=== PATIENT | male | born 1975 | race Caucasian/White ===

== ENCOUNTER 2018-02-10 18:49 | Emergency (ER) | payer SELFPAY ==
[2018-02-10 18:53] VITALS: BP 153/85
--- NOTE | 2018-02-10 19:09 | ER Report ---
History and Physical Time Seen By MD: 19:02 Hx. of Stated Complaint: PINCHED NERVE IN RT SHOULDER SINCE LAST . HAS BEEN TO TWO URGENT CARES SINCE SAT. HPI/ROS CHIEF COMPLAINT: shoulder with pinched nerve HISTORY OF PRESENT ILLNESS: This is a 42 year old male. 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 He has had a pain in his right neck/shoulder area. This has been present for about a week now. Has been to two urgent cares for the same problem. The first one gave him Naproxen and Robaxin which did not help. Next visit saw the doctor who gave Gabapentin without relief. Sharp pain at the area of the levator scapulae. Improves with holding arm above his head. Has some tingling in the arm. No hand weakness, but feels weak in the shoulder. Becoming very problematic for his job driving a truck. He is currently pulling a load to [place]. No fevers or chills. No chest pain. No shortness of breath. Allergies: Coded Allergies: No Known Drug Allergies (Unverified , 02/10/18) Home Meds Active Scripts Hydrocodone Bit/Acetaminophen (HYDROCODON-ACETAMINOPHEN 5-325) 1 Each Tablet, 1 EACH PO Q4H PRN for PAIN, #10 TAB 0 Refills Prov:FLAVIO THOMAS MD 02/10/18 Prednisone (PREDNISONE) 20 Mg Tablet, 60 MG PO QDAY, #12 TAB 0 Refills Prov:FLAVIO THOMAS MD 02/10/18 Reviewed Nurses Notes: Yes Hx Substance Use Disorder: No Hx Alcohol Use: No Constitutional Vital Sign - Last 24 Hours 02/10/18 18:53 Temp 97.9 Pulse 93 Resp 16 B/P (MAP) 153/85 Pulse Ox 96 O2 Delivery Room Air Physical Exam General Appearance: Alert, no acute distress. Eyes: Pupils equal and round, no injection. ENT: Normal oral mucosa. Moist mucous membranes. Neck: Neck is supple and non tender anterior. Musculoskeletal: Has pain over the levator scapulae and paraspinous neck muscles. No pain in the trapezius. No pain over spinous processes. No pain over scapula, clavicle or humerus. Do not feel any masses, but has some muscle knots in levator scapulae Respiratory: Chest is non tender, breathing easily. Cardiac: regular rate and rhythm. Normal cap refill in arm. Neuro: Has some paresthesias in arm, but no focal numbness. Normal strength. Skin: No rashes or lesions. DIFFERENTIAL DIAGNOSIS: After history and physical exam differential diagnosis was considered for neck and shoulder pain on the right. Medical Decision Making Data Points Result Diagram: 02/10/18191602/10/181916 Laboratory Hematology Test 02/10/18 19:17 Red Blood Count 5.33 M/uL (4.00-5.60) Mean Corpuscular Volume 88.6 fL (80.0-96.0) Mean Corpuscular Hemoglobin 30.4 pg (26.0-33.0) Mean Corpuscular Hemoglobin Concent 34.3 g/dL (32.0-36.0) Red Cell Distribution Width 13.7 % (11.5-14.5) Mean Platelet Volume 10.8 fL (7.2-11.1) Neutrophils (%) (Auto) 59.7 % (39.4-72.5) Lymphocytes (%) (Auto) 31.8 % (17.6-49.6) Monocytes (%) (Auto) 4.5 % (4.1-12.4) Eosinophils (%) (Auto) 3.2 % (0.4-6.7) Basophils (%) (Auto) 0.8 % (0.3-1.4) Nucleated RBC Relative Count (auto) 0.1 /100WBC Neutrophils # (Auto) 5.2 K/uL (2.0-7.4) Lymphocytes # (Auto) 2.8 K/uL (1.3-3.6) Monocytes # (Auto) 0.4 K/uL (0.3-1.0) Eosinophils # (Auto) 0.3 K/uL (0.0-0.5) Basophils # (Auto) 0.1 K/uL (0.0-0.1) Nucleated RBC Absolute Count (auto) 0.01 K/uL Peripheral Blood Smear Yes Y/N Erythrocyte Sedimentation Rate 11 mm/HOUR (0-15) Sodium Level 139 mmol/L (137-145) Potassium Level 3.6 mmol/L (3.5-5.0) Chloride Level 99 mmol/L (98-107) Carbon Dioxide Level 27 mmol/L (22-30) Blood Urea Nitrogen 12 mg/dl (9-21) Creatinine 1.10 mg/dl (0.66-1.25) Glomerular Filtration Rate Calc > 60.0 Random Glucose 165 mg/dl (75-110) Calcium Level 9.3 mg/dl (8.4-10.2) Total Bilirubin 0.4 mg/dl (0.2-1.3) Aspartate Amino Transf (AST/SGOT) 41 U/L (0-35) Alanine Aminotransferase (ALT/SGPT) 50 U/L (0-56) Alkaline Phosphatase 69 U/L (0-126) C-Reactive Protein < 0.5 mg/dl (<1.0) Total Protein 7.8 g/dl (6.3-8.2) Albumin 4.4 g/dl (3.5-5.0) Chemistry Test 02/10/18 19:17 White Blood Count 8.8 k/uL (4.5-11.0) Red Blood Count 5.33 M/uL (4.00-5.60) Hemoglobin 16.2 g/dL (14.0-18.0) Hematocrit 47.3 % (42.0-52.0) Mean Corpuscular Volume 88.6 fL (80.0-96.0) Mean Corpuscular Hemoglobin 30.4 pg (26.0-33.0) Mean Corpuscular Hemoglobin Concent 34.3 g/dL (32.0-36.0) Red Cell Distribution Width 13.7 % (11.5-14.5) Platelet Count 159 K/uL (150-450) Mean Platelet Volume 10.8 fL (7.2-11.1) Neutrophils (%) (Auto) 59.7 % (39.4-72.5) Lymphocytes (%) (Auto) 31.8 % (17.6-49.6) Monocytes (%) (Auto) 4.5 % (4.1-12.4) Eosinophils (%) (Auto) 3.2 % (0.4-6.7) Basophils (%) (Auto) 0.8 % (0.3-1.4) Nucleated RBC Relative Count (auto) 0.1 /100WBC Neutrophils # (Auto) 5.2 K/uL (2.0-7.4) Lymphocytes # (Auto) 2.8 K/uL (1.3-3.6) Monocytes # (Auto) 0.4 K/uL (0.3-1.0) Eosinophils # (Auto) 0.3 K/uL (0.0-0.5) Basophils # (Auto) 0.1 K/uL (0.0-0.1) Nucleated RBC Absolute Count (auto) 0.01 K/uL Peripheral Blood Smear Yes Y/N Erythrocyte Sedimentation Rate 11 mm/HOUR (0-15) Glomerular Filtration Rate Calc > 60.0 Calcium Level 9.3 mg/dl (8.4-10.2) Total Bilirubin 0.4 mg/dl (0.2-1.3) Aspartate Amino Transf (AST/SGOT) 41 U/L (0-35) Alanine Aminotransferase (ALT/SGPT) 50 U/L (0-56) Alkaline Phosphatase 69 U/L (0-126) C-Reactive Protein < 0.5 mg/dl (<1.0) Total Protein 7.8 g/dl (6.3-8.2) Albumin 4.4 g/dl (3.5-5.0) EKG/Imaging Imaging EXAMINATION: CT Cervical spine with intravenous contrast HISTORY: Neck and shoulder pain, left. COMPARISON: None. TECHNIQUE: Axial images were obtained from the skull base through the upper thoracic spine with IV contrast administration. Coronal and sagittal reformatted images were obtained from the axial source data. CONTRAST: 75 mL of IV Isovue-370 One of the following dose optimization techniques was utilized in the performa nce of this exam: Automated exposure control; adjustment of the mA and/or kV according to the patient's size; or use of an iterative reconstruction technique. Specific details can be referenced in the facility's radiology CT exam operational policy. FINDINGS: Alignment: Straightening of the cervical spine. Cranio-cervical junction: Negative. Vertebral bodies: Vertebral body heights are maintained. No evidence of acute fracture. Posterior elements: Negative. Hardware: None. Disc Spaces: At C3-4 disc bulge mildly narrows the thecal sac. At C6-7 posterior disc osteophyte complex causes mild central spinal canal stenosis. There is mild uncovertebral spurring at multiple levels which mildly narrows the neural foramina on the left at C3-4 and at C6-7. Soft tissues: Negative. Visualized upper chest: Paraseptal emphysematous changes in the lung apices. IMPRESSION: Multilevel disc degenerative changes in the cervical spine with mild central spinal canal stenosis at the C6-7 level. There is mild left neural foraminal stenosis at the C3-4 and C6-7 levels. Report Dictated By: Chu Candelario MD at 02/10/2018 8:36 PM EXAMINATION: CT Thoracic spine with intravenous contrast HISTORY: Neck and shoulder pain, left. COMPARISON: None. TECHNIQUE: Axial images were obtained through the thoracic spine with IV contrast administration. Coronal and sagittal reformatted images were obtained from the axial source data. CONTRAST: 75 mL of IV Isovue-370 One of the following dose optimization techniques was utilized in the performance of this exam: Automated exposure control; adjustment of the mA and/or kV according to the patient's size; or use of an iterative reconstruction technique. Specific details can be referenced in the facility's radiology CT exam operational policy. FINDINGS: Alignment: Normal. Vertebral bodies: Vertebral body heights are maintained. No evidence of acute fracture. Posterior elements: Negative. Hardware: None. Disc Spaces: Small anterior osteophytes at multiple levels. Schmorl nodes at multiple levels. Soft tissues: Negative. Visualized lungs / abdomen: Mild paraseptal emphysematous changes in the lungs. IMPRESSION: Mild multilevel disc degenerative changes in the thoracic spine. No acute fracture or malalignment of the thoracic spine. Report Dictated By: Chu Candelario MD at 02/10/2018 8:47 PM INDICATION: neck and shoulder pain, right. DATE: 02/10/2018 8:32 PM. TECHNIQUE: SHOULDER MIN 2 VIEWS RIGHT COMPARISON: None FINDINGS: Normal glenohumeral alignment without evidence of fracture or dislocation. No widening of the AC joint or the coracoclavicular interval. IMPRESSION: No evidence of fracture or dislocation of the right shoulder. Report Dictated By: Lilian Mckee MD at 02/10/2018 8:32 PM ED Course/Re-evaluation ED Course I reviewed the imaging results with the patient. Degenerative changes in the spine that could be causing his pain. Recommended Prednisone burst and follow-up with his regular doctor back in [place]. Will provide some Hydrocodone for acute pain relief at this time. Discussed medication use and need to avoid driving when using these medicines. Decision to Disposition Date: Feb 10, 2018 Decision to Disposition Time: 21:17 Depart Departure Latest Vital Signs Vital Signs Date Time Temp Pulse Resp B/P (MAP) Pulse Ox O2 Delivery O2 Flow Rate FiO2 02/10/18 18:53 97.9 93 16 153/85 96 Room Air Impression: Primary Impression: Cervical spondylitis with radiculitis Condition: Improved Disposition: HOME OR SELF-CARE New Scripts Hydrocodone Bit/Acetaminophen (HYDROCODON-ACETAMINOPHEN 5-325) 1 Each Tablet 1 EACH PO Q4H PRN for PAIN, #10 TAB 0 Refills Prov: FLAVIO THOMAS MD 02/10/18 Prednisone (PREDNISONE) 20 Mg Tablet 60 MG PO QDAY, #12 TAB 0 Refills Prov: FLAVIO THOMAS MD 02/10/18 Patient Instructions: Cervical Radiculopathy (ED) Additional Instructions: You appear to have irritation in your right neck due arthritis changes in your cervical spine (spine in the neck area). The nerves can get irritated as they leave the spine, causing pain and numbness/tingling. We would like to have you continue the Gabapentin prescribed by the last urgent care provider. Add in Prednisone 20mg tablet, 3 tablets once a day for the next 4 mornings. Lortab 5/325, one every 6 hours as needed for severe pain, but do not drive within 6 hours of taking this medicine. You can keep using the Robaxin as well, but also do not drive with this medicine as well. Follow-up with your doctor in the [place] area if not improving and they will ne ed to consider further evaluation and treatments such as MRI or physical therapy. FLAVIO THOMAS MD Feb 10, 2018 19:09
[2018-02-10 19:28] LABS: PLATELET COUNT, AUTOMATED 159 K/uL (150-450)
[2018-02-10] MEDS ORDERED: IOPAMIDOL 76% 75 ML INFUS BTL 75 ML ONE (19:46)
--- NOTE | 2018-02-10 20:37 | RADIOLOGY IMAGING REPORT ---
FACILITY: [facility] - [place] PATIENT NAME: Alvin Braga : 1975 MR: [id number] V: [id number] EXAM DATE: ORDERING PHYSICIAN: FLAVIO THOMAS TECHNOLOGIST: Location: [facility] [place] Patient: Alvin Braga : 1975 Visit/Account:[id number] Date of Sevice: 02/10/2018 INDICATION: neck and shoulder pain, right. DATE: 02/10/2018 8:32 PM. TECHNIQUE: SHOULDER MIN 2 VIEWS RIGHT COMPARISON: None FINDINGS: Normal glenohumeral alignment without evidence of fracture or dislocation. No widening of the AC joint or the coracoclavicular interval. IMPRESSION: No evidence of fracture or dislocation of the right shoulder. Report Dictated By: Lilian Mckee MD at 02/10/2018 8:32 PM Report E-Signed By: Lilian Mckee MD at 02/10/2018 8:34 PM WSN:[id number]
--- NOTE | 2018-02-10 20:50 | RADIOLOGY IMAGING REPORT ---
FACILITY: [facility] PATIENT NAME: Alvin Braga : 1975 MR: [id number] V: [id number] EXAM DATE: ORDERING PHYSICIAN: FLAVIO THOMAS TECHNOLOGIST: Location: [facility] Patient: Alvin Braga : 1975 Visit/Account:[id number] Date of Sevice: 02/10/2018 EXAMINATION: CT Cervical spine with intravenous contrast HISTORY: Neck and shoulder pain, left. COMPARISON: None. TECHNIQUE: Axial images were obtained from the skull base through the upper thoracic spine with IV c ontrast administration. Coronal and sagittal reformatted images were obtained from the axial source d letha. CONTRAST: 75 mL of IV Isovue-370 One of the following dose optimization techniques was utilized in the performance of this exam: Autom ated exposure control; adjustment of the mA and/or kV according to the patient's size; or use of an i terative reconstruction technique. Specific details can be referenced in the facility's radiology C T exam operational policy. FINDINGS: Alignment: Straightening of the cervical spine. Cranio-cervical junction: Negative. Vertebral bodies: Vertebral body heights are maintained. No evidence of acute fracture. Posterior elements: Negative. Hardware: None. Disc Spaces: At C3-4 disc bulge mildly narrows the thecal sac. At C6-7 posterior disc osteophyte comp pj causes mild central spinal canal stenosis. There is mild uncovertebral spurring at multiple level s which mildly narrows the neural foramina on the left at C3-4 and at C6-7. Soft tissues: Negative. Visualized upper chest: Paraseptal emphysematous changes in the lung apices. IMPRESSION: Multilevel disc degenerative changes in the cervical spine with mild central spinal canal stenosis at the C6-7 level. There is mild left neural foraminal stenosis at the C3-4 and C6-7 levels. Report Dictated By: Chu Candelario MD at 02/10/2018 8:36 PM Report E-Signed By: Chu Candelario MD at 02/10/2018 8:47 PM WSN:[id number]
--- NOTE | 2018-02-10 20:57 | RADIOLOGY IMAGING REPORT ---
FACILITY: [facility] PATIENT NAME: Alvin Braga : 1975 MR: [id number] V: [id number] EXAM DATE: [id number] ORDERING PHYSICIAN: FLAVIO THOMAS TECHNOLOGIST: Location: [facility] Patient: Alvin Braga : 1975 Visit/Account:[id number] Date of Sevice: 02/10/2018 EXAMINATION: CT Thoracic spine with intravenous contrast HISTORY: Neck and shoulder pain, left. COMPARISON: None. TECHNIQUE: Axial images were obtained through the thoracic spine with IV contrast administration. Co jojo and sagittal reformatted images were obtained from the axial source data. CONTRAST: 75 mL of IV Isovue-370 One of the following dose optimization techniques was utilized in the performance of this exam: Autom ated exposure control; adjustment of the mA and/or kV according to the patient's size; or use of an i terative reconstruction technique. Specific details can be referenced in the facility's radiology C T exam operational policy. FINDINGS: Alignment: Normal. Vertebral bodies: Vertebral body heights are maintained. No evidence of acute fracture. Posterior elements: Negative. Hardware: None. Disc Spaces: Small anterior osteophytes at multiple levels. Schmorl nodes at multiple levels. Soft tissues: Negative. Visualized lungs / abdomen: Mild paraseptal emphysematous changes in the lungs. IMPRESSION: Mild multilevel disc degenerative changes in the thoracic spine. No acute fracture or malalignment of the thoracic spine. Report Dictated By: Chu Candelario MD at 02/10/2018 8:47 PM Report E-Signed By: Chu Candelario MD at 02/10/2018 8:52 PM WSN:[id number]
[2018-02-10] MEDS ORDERED: predniSONE 20 MG TAB PO ONE (21:20)
[2018-02-10] MEDS ORDERED: ACET/HYDROC 5/325MG TH ER ONLY 2 TAB/BOTTLE PO ONE (21:20)
[2018-02-10] MEDS ORDERED: LOR5/325 PO (21:21)
[2018-02-10] MEDS ORDERED: PRED20TA6 PO (21:21)
== END 2018-02-10 21:31 | disposition home or self-care (01) ==
LOC: ER 19:07
DX: M47.892 Other spondylosis, cervical region (principal); M54.12 Radiculopathy, cervical region
CPT/HCPCS: 72126; 72129; 73030; 85025; 85651; 86140; 99284; J7512; Q9967; 82040; 82247; 82310; 82374; 82435; 82565; 82947; 84075; 84132; 84155; 84295; 84450; 84460; 84520